=== PATIENT | male | born 1935 ===

== ENCOUNTER 2018-06-26 12:56 | Inpatient (IN) ==
[2018-06-26] MEDS ORDERED: Acetaminophen 325 MG Tablet PO ONE (13:27)
--- NOTE | 2018-06-26 13:32 | ED ---
HPI General Chief Complaint: Fall Stated Complaint: Fall/Medical Time Seen by Provider: 06/26/18 13:11 Source: patient and family Limitations: no limitations History of Present Illness HPI Narrative: 82-year-old male presents from triage with complaint last night trying to get into bed and falling and having weakness in his legs with difficulty getting up. His family called 911 but he was able to get up and did not want to go when so they did not come last night. He states that he has been having a dry cough but denies other concurrent complaints. He did not know that he had a fever. complaint: Reports fall Onset (ago): hour(s) Fall from: standing Fall witnessed: yes, by family Place fall occurred: home Loss of consciousness: none Symptoms prior to fall: Reports none Associated symptoms (after fall): Reports weakness Related Data Home Medications Medication Instructions Recorded Confirmed aspirin [Aspir-81] 81 mg PO DAILY 06/26/18 06/26/18 atorvastatin 40 mg PO DAILY 06/26/18 06/26/18 gabapentin 100 mg PO DAILY 06/26/18 06/26/18 glipizide 10 mg PO BID 06/26/18 06/26/18 pioglitazone 30 mg PO DAILY 06/26/18 06/26/18 verapamil 240 mg PO DAILY 06/26/18 06/26/18 Allergies Allergy/AdvReac Type Severity Reaction Status Date / Time No Known Allergies Allergy Verified 06/26/18 13:24 Review of Systems ROS: all other systems reviewed are negative [facility] Medical History Medical History Diabetes (Acute) HTN (hypertension) (Acute) Social History Social History Second Hand Smoke Exposure: No Smoking Status: Never smoker How Often Do You Have a Drink Containing Alcohol: Monthly or less Recent Travel in [facility] within the Last 8 Weeks: No Recent Out of Country Travel within the Last 8 Weeks: No Immunization History Tetanus Immunization: <5 Years Exam Narrative Exam Narrative: GENERAL: 82 y/o male in no apparent distress SKIN: Focused skin assessment warm/dry. HEAD: Atraumatic. Normocephalic. EYES: Pupils equal and round. No scleral icterus. No injection or drainage. ENT: No nasal bleeding or discharge. Mucous membranes pink and moist. NECK: Trachea midline. CARDIOVASCULAR: Regular rate and rhythm. RESPIRATORY: No accessory muscle use. Clear to auscultation. Breath sounds equal bilaterally. GASTROINTESTINAL: Abdomen soft, non-tender, nondistended MUSCULOSKELETAL: No obvious deformities. No clubbing. No cyanosis. No edema. NEUROLOGICAL: Awake and alert. No obvious cranial nerve deficits. Motor grossly within normal limits. Normal speech. 5/5 in all 4 extremities PSYCHIATRIC: Appropriate mood and affect; insight and judgment normal. Course Reevaluation(s) Reevaluation #1: Patient's blood work shows renal failure of unknown chronicity given no prior blood work. He states he follows with Dr. Gee in the past but does not know what his baseline is. He has lactic acidosis and rhabdomyolysis. He was given IV fluids and broad-spectrum antibiotic. No definitive source of infection noted. Influenza added on and will be admitted for further care Consultations Consultation #1: dr porter agrees to admit Initial Documented Vital Signs Temperature 100.2 F H 06/26/18 13:05 Pulse Rate 97 H 06/26/18 13:05 Respiratory Rate 20 06/26/18 13:05 Blood Pressure 155/70 H 06/26/18 13:05 Pulse Oximetry 97 06/26/18 13:05 Last Documented Vital Signs Temperature 100.2 F H 06/26/18 13:05 Pulse Rate 80 06/26/18 17:36 Respiratory Rate 16 06/26/18 17:36 Blood Pressure 154/72 H 06/26/18 17:36 Pulse Oximetry 95 06/26/18 17:36 Medical Decision Making MDM Narrative Medical decision making narrative: We will check workup and reevaluate. Medical Screen Exam Complete: Yes Emergency Medical Condition: Yes Differential Diagnosis Differential Diagnosis: Rhabdomyolysis, UTI, pneumonia, URI, anemia, renal failure, hyponatremia Lab Data Lab results reviewed: Yes I reviewed the patient's lab results. Result diagrams: 06/26/18 13:45 06/26/18 13:45 Lab Results 06/26/18 06/26/18 06/26/18 Range/Units 13:45 13:45 13:45 WBC 6.0 (4.0-11.0) th/mm3 RBC 4.06 L (4.50-5.90) mil/mm3 Hgb 13.3 (13.0-17.0) gm/dL Hct 38.3 L (39.0-51.0) % MCV 94.3 (80.0-100.0) fL MCH 32.7 (27.0-34.0) pg MCHC 34.6 (32.0-36.0) % RDW 13.7 (11.6-17.2) % Plt Count 93 L (150-450) th/mm3 MPV 8.5 (7.0-11.0) fL Prelim Diff (Auto) Slide review pending Neut % (Auto) 81.0 H (16.0-70.0) % Lymph % (Auto) 8.5 L (9.0-44.0) % Carter % (Auto) 10.2 H (0.0-8.0) % Eos % (Auto) 0.1 (0.0-4.0) % Baso % (Auto) 0.2 (0.0-2.0) % Neut # (Auto) 4.9 (1.8-7.7) th/mm3 Lymph # (Auto) 0.5 L (1.0-4.8) th/mm3 Carter # (Auto) 0.6 (0.0-0.9) th/mm3 Eos # (Auto) 0.0 (0.0-0.4) th/mm3 Baso # (Auto) 0.0 (0.0-0.2) th/mm3 WBC Differential . Diff Scan Auto diff confirmed Differential Comment . PT 10.0 (9.8-11.6) sec INR 1.0 Ratio APTT 28.8 (23.4-31.7) sec Sodium 136 (136-145) meq/L Potassium 4.1 (3.5-5.1) meq/L Chloride 101 (98-107) meq/L Carbon Dioxide 26.0 (21.0-32.0) meq/L Anion Gap 9 (5-15) meq/L BUN 30 H (7-18) mg/dL Creatinine 2.73 H (0.60-1.30) mg/dL Estimated GFR 23 L (>89) mL/min Random Glucose 114 H (74-106) mg/dL Lactic Acid (0.4-2.0) mmol/L Calcium 8.3 L (8.5-10.1) mg/dL Phosphorus 3.4 (2.5-4.9) mg/dL Magnesium 2.2 (1.5-2.5) mg/dL Total Bilirubin 0.8 (0.2-1.0) mg/dL AST 53 H (15-37) U/L ALT 29 (12-78) U/L Alkaline Phosphatase 80 (45-117) U/L Total Creatine Kinase 1072 H (39-308) U/L CK-MB (CK-2) 2.8 (0.5-3.6) ng/mL CK-MB (CK-2) % 0.3 (0.0-4.0) % Troponin I 0.03 (0.02-0.05) ng/mL Total Protein 7.0 (6.4-8.2) g/dL Albumin 3.4 (3.4-5.0) g/dL Urine Color (Yellw/Straw) Urine Clarity (Clear) Urine pH (5.0-8.5) Ur Specific [place] (1.002-1.035) Urine Protein (Neg-Trace) mg/dL Urine Glucose (UA) (Negative) mg/dL Urine Ketones (Negative) mg/dL Urine Occult Blood (Negative) Urine Nitrate (Negative) Urine Bilirubin (Negative) Urine Urobilinogen (Less than 2) mg/dL Ur Leukocyte Esterase (Negative) Urine RBC (0-3) /hpf Urine WBC (0-5) /hpf Ur Squamous Epith Cells (0-5) /hpf Urine Mucus (Occasional) /lpf Micro UA Comment Ur Microscopic Review Urine Culture Comments 06/26/18 06/26/18 Range/Units 13:45 14:50 WBC (4.0-11.0) th/mm3 RBC (4.50-5.90) mil/mm3 Hgb (13.0-17.0) gm/dL Hct (39.0-51.0) % MCV (80.0-100.0) fL MCH (27.0-34.0) pg MCHC (32.0-36.0) % RDW (11.6-17.2) % Plt Count (150-450) th/mm3 MPV (7.0-11.0) fL Prelim Diff (Auto) Neut % (Auto) (16.0-70.0) % Lymph % (Auto) (9.0-44.0) % Carter % (Auto) (0.0-8.0) % Eos % (Auto) (0.0-4.0) % Baso % (Auto) (0.0-2.0) % Neut # (Auto) (1.8-7.7) th/mm3 Lymph # (Auto) (1.0-4.8) th/mm3 Carter # (Auto) (0.0-0.9) th/mm3 Eos # (Auto) (0.0-0.4) th/mm3 Baso # (Auto) (0.0-0.2) th/mm3 WBC Differential Diff Scan Differential Comment PT (9.8-11.6) sec INR Ratio APTT (23.4-31.7) sec Sodium (136-145) meq/L Potassium (3.5-5.1) meq/L Chloride (98-107) meq/L Carbon Dioxide (21.0-32.0) meq/L Anion Gap (5-15) meq/L BUN (7-18) mg/dL Creatinine (0.60-1.30) mg/dL Estimated GFR (>89) mL/min Random Glucose (74-106) mg/dL Lactic Acid 2.3 H (0.4-2.0) mmol/L Calcium (8.5-10.1) mg/dL Phosphorus (2.5-4.9) mg/dL Magnesium (1.5-2.5) mg/dL Total Bilirubin (0.2-1.0) mg/dL AST (15-37) U/L ALT (12-78) U/L Alkaline Phosphatase (45-117) U/L Total Creatine Kinase (39-308) U/L CK-MB (CK-2) (0.5-3.6) ng/mL CK-MB (CK-2) % (0.0-4.0) % Troponin I (0.02-0.05) ng/mL Total Protein (6.4-8.2) g/dL Albumin (3.4-5.0) g/dL Urine Color Yellow (Yellw/Straw) Urine Clarity Hazy H (Clear) Urine pH 5.0 (5.0-8.5) Ur Specific [place] 1.014 (1.002-1.035) Urine Protein 500 or greater (Neg-Trace) mg/dL Urine Glucose (UA) Negative (Negative) mg/dL Urine Ketones Negative (Negative) mg/dL Urine Occult Blood Small H (Negative) Urine Nitrate Negative (Negative) Urine Bilirubin Negative (Negative) Urine Urobilinogen Less than 2 (Less than 2) mg/dL Ur Leukocyte Esterase Negative (Negative) Urine RBC Less than 1 (0-3) /hpf Urine WBC 3 (0-5) /hpf Ur Squamous Epith Cells <1 (0-5) /hpf Urine Mucus Few H (Occasional) /lpf Micro UA Comment Culture not ind Ur Microscopic Review Not Reportable Urine Culture Comments Culture not ind Imaging Data Attestation: I personally reviewed and interpreted this imaging study as follows : Radiologist's impression: Chest X-Ray 06/26/18 13:27 CONCLUSION: No acute cardiopulmonary disease. Head CT 06/26/18 13:27 CONCLUSION: Slight chronic small vessel ischemic and atrophic changes. Abdomen/Pelvis CT 06/26/18 15:35 CONCLUSION: 1. Cholelithiasis. No pericholecystic inflammatory changes seen. 2. Colonic diverticula. No evidence of acute diverticulitis. 3. Enlarged prostate. 4. Lumbar spine degenerative findings. Discharge Plan Discharge Disposition Patient Disposition: ED Admit(ED Internal Use Only) Discharge Order Discharge Orders: ED Use Only Admit Order (Routine); Ordered 06/26/18 Ordered By: Alejandrina De Jesus Discharge Details Diagnosis: Rhabdomyolysis, Acidosis, lactic, Renal failure Physicians Team ED Provider: Alejandrina De Jesus Primary Care Provider: UNKNOWN, Attending Provider: Cassia Porter Discharge Interventions Interventions: Vital Signs Last Done: 06/26/18 17:36 Status ED Status: Admitted Patient
--- NOTE | 2018-06-26 13:53 | XR ---
EXAM DATE: 06/26/2018 1:47 PM EST AGE/SEX: 82 years / Male INDICATIONS: Chest pain and general weakness. CLINICAL DATA: This is the patient's initial encounter. Patient reports that signs and symptoms have been present for 1 week and indicates a pain score of 2/10. MEDICAL/SURGICAL HISTORY: None. None. COMPARISON: . FINDINGS: The lungs are clear without infiltrate, nodule, or mass. There is no appreciable pleural effusion for technique. Heart and mediastinum are unremarkable. CONCLUSION: No acute cardiopulmonary disease. Electronically signed by: Meghna Uribe MD Board Certified Radiologist 06/26/2018 1:51 PM EST
[2018-06-26 14:21] LABS: Baso % (Auto) 0.2 % (0.0-2.0); Eos % (Auto) 0.1 % (0.0-4.0); Hematocrit 38.3 % (39.0-51.0); Hemoglobin 13.3 gm/dL (13.0-17.0); Lymph # (Auto) 0.5 th/mm3 (1.0-4.8); Lymph % (Auto) 8.5 % (9.0-44.0); Mean Corpuscular HGB Conc 34.6 % (32.0-36.0); Mean Corpuscular Hemoglobin 32.7 pg (27.0-34.0); Mean Corpuscular Volume 94.3 fL (80.0-100.0); Mean Platelet Volume 8.5 fL (7.0-11.0); Mono # (Auto) 0.6 th/mm3 (0.0-0.9); Mono % (Auto) 10.2 % (0.0-8.0); Neut # (Auto) 4.9 th/mm3 (1.8-7.7); Platelet Count 93 th/mm3 (150-450); Red Blood Count 4.06 mil/mm3 (4.50-5.90); Red Cell Distribution Width 13.7 % (11.6-17.2)
[2018-06-26 14:27] LABS: Activated Partial Thrombo Time 28.8 sec (23.4-31.7)
--- NOTE | 2018-06-26 14:34 | CT ---
EXAM DATE: 06/26/2018 2:30 PM EST AGE/SEX: 82 years / Male INDICATIONS: Patient complains of weakness. CLINICAL DATA: This is the patient's initial encounter. Patient reports that signs and symptoms have been present for 1 day and indicates a pain score of 1/10. MEDICAL/SURGICAL HISTORY: Diabetes. Hypertension. Non-responsive. RADIATION DOSE: 56.35 CTDI (mGy) COMPARISON: No prior exams available for comparison. TECHNIQUE: CT of the head without contrast. Using automated exposure control and adjustment of the mA and/or kV according to patient size, radiation dose was kept as low as reasonably achievable to ob tain optimal diagnostic quality images. DICOM format image data is available electronically for revi ew and comparison. FINDINGS: There is no evidence for intracranial hemorrhage, mass effect, mass lesions, or edema. The visualize d bony structures appear intact. Slight degree of brain atrophy is seen. Slight periventricular whit e matter changes are seen nonspecific mostly consistent with chronic small vessel ischemic changes. There are no signs of acute infarction for technique. CONCLUSION: Slight chronic small vessel ischemic and atrophic changes. Electronically signed by: Meghna Uribe MD Board Certified Radiologist 06/26/2018 2:32 PM EST
[2018-06-26 14:35] LABS: Alanine Aminotransferase 29 U/L (12-78); Albumin 3.4 g/dL (3.4-5.0); Anion Gap 9 meq/L (5-15); Aspartate Aminotransferase 53 U/L (15-37); Blood Urea Nitrogen 30 mg/dL (7-18); Calcium 8.3 mg/dL (8.5-10.1); Chloride 101 meq/L (98-107); Glomerular Filtration Rate 23 mL/min (>89); Glucose,Random 114 mg/dL (74-106); Magnesium 2.2 mg/dL (1.5-2.5); Phosphorus 3.4 mg/dL (2.5-4.9); Potassium 4.1 meq/L (3.5-5.1); Sodium 136 meq/L (136-145)
[2018-06-26] MEDS ORDERED: Sod Chloride 0.9% Inj 1,000 ML IV.SIG SCH ×2 (14:45→15:00)
[2018-06-26 14:49] LABS: Alkaline Phosphatase 80 U/L (45-117); Creatine Kinase 1072 U/L (39-308); Troponin I 0.03 ng/mL (0.02-0.05)
[2018-06-26] MEDS ORDERED: Piperacil/Tazo 4.5 GM Premix 4.5 GM/100 ML BAG IV.SIG SCH (15:00)
[2018-06-26 15:01] LABS: CKMB Percent 0.3 % (0.0-4.0); Creatine Kinase MB 2.8 ng/mL (0.5-3.6)
[2018-06-26 15:25] LABS: Bilirubin,Urine Negative (Negative); Clarity,Urine Hazy (Clear); Color,Urine Yellow (Yellw/Straw); Glucose,Urine (UA) Negative (Negative); Leukocyte Esterase,Urine Negative (Negative); Mucus,Urine Few /lpf (Occasional); Nitrite,Urine Negative (Negative); Specific Gravity,Urine 1.014 (1.002-1.035); Squamous Epithelial Cell,Urine <1 /hpf (0-5)
--- NOTE | 2018-06-26 17:45 | CT ---
EXAM DATE: 06/26/2018 5:30 PM EST AGE/SEX: 82 years / Male INDICATIONS: Abdominal pain. CLINICAL DATA: This is the patient's initial encounter. Patient reports that signs and symptoms have been present for 1 day and indicates a pain score of 4/10. MEDICAL/SURGICAL HISTORY: Hypertension. None. RADIATION DOSE: 13.47 CTDI (mGy) COMPARISON: No prior exams available for comparison. TECHNIQUE: Multiple contiguous axial images were obtained through the abdomen. Images were obtained using multiple row detector helical technique. Using automated exposure control and adjustment of the mA and/or kV according to patient size, radiation dose was kept as low as reasonably achievable to o btain optimal diagnostic quality images. DICOM format image data is available electronically for rev iew and comparison. FINDINGS: Lower Lungs: The visualized lower lungs are clear. Liver: Multiple small calcified gallstones are seen at the dependent portion of the gallbladder. No p ericholecystic inflammatory changes. Liver is homogeneous and within normal limits. No biliary ductal dilatation identified. Spleen: Homogeneous density without enlargement. Pancreas: Unremarkable without mass or calcification. Kidneys: Normal in size and shape. No evidence of mass or hydronephrosis. Adrenal Glands: Unremarkable. Aorta: The aorta and proximal iliac vessels are grossly unremarkable without aneurysmal dilation. Bowel/Mesentery: Multiple colonic diverticula. No evidence of acute diverticulitis. No evidence of b owel dilatation. No free air or free fluid. Appendix within normal limits. Abdominal Wall: Intact. Retroperitoneum: No evidence of adenopathy in the retrocrural, para-aortic, or deep pelvic regions. Bladder: Contours are smooth. Reproductive Organs: The prostate is enlarged measuring 5.1 cm in greatest transverse dimension. Inguinal: Within normal limits. 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 Bridging osteophytes across the sacroili ac joints. CONCLUSION: 1. Cholelithiasis. No pericholecystic inflammatory changes seen. 2. Colonic diverticula. No evidence of acute diverticulitis. 3. Enlarged prostate. 4. Lumbar spine degenerative findings. Electronically signed by: Kemar Gallegos MD Board Certified Radiologist 06/26/2018 5:43 PM EST
[2018-06-26] MEDS ORDERED: Acetaminophen 325 MG Tablet PO PRN (17:49)
[2018-06-26] MEDS ORDERED: Bisacodyl 10 MG Supp RECTAL PRN (17:49)
[2018-06-26] MEDS ORDERED: Dextrose 50% in Water 50 ML Vial IV.PUSH PRN (17:52)
--- NOTE | 2018-06-26 18:29 | P.HPIM ---
History of Present Illness Primary Care Physician: UNKNOWN History of Present Illness: 82-year-old white male with a history of hypertension, diabetes mellitus type 2, chronic kidney disease stage IV presents to the emergency room after he felt extremely weak this morning and fell while he was attempting to get out of bed. Of note, patient reports a 6- day history of dry cough with no associated shortness of breath or chest pain. He reports some mild muscle aches and weakness in the hip over the past few days. He has had also a poor appetite due to not feeling well. He denies any associated abdominal pain nor any nausea vomiting or chills or diarrhea. He reports no fever but may be some occasional chills. He usually ambulates independently with no difficulty. He also reports that his blueprint reader is Dr. Gotti and states his last GFR was 28. He does not recall his creatinine level. He reports he is making good urine with no difficulty and denies any symptoms of dysuria. Diagnosis (1) Severe sepsis: (2) RAFAELA (acute kidney injury): Inpatient Certification Inpatient Certification: I certify that the inpatient services were ordered in accordance with Medicare regulations governing the order. This includes certification that hospital inpatient services are reasonable and necessary and in the case of services not specified as inpatient-only under 42 CFR 419.22(n), that they are appropriately provided as inpatient services in accordance to with the 2-midnight benchmark under 43 CFR 412.3(e) Estimated Total Length of Stay (Days): 3 Plans for Post Hospital Care: Not yet determined Review of Systems Constitutional: Reports as per HPI, Reports body ache(s), Reports chills, Denies fever(s), Denies headache(s) and Reports poor appetite Eyes: Denies blurry vision, Denies change in vision and Denies eye pain Ears, Nose, Mouth, and Throat: Denies abnormal hearing, Denies headache(s), Denies mouth pain, Denies nasal congestion, Denies neck pain and Denies sore throat Cardiovascular: Denies chest pain, Denies pedal edema, Denies palpitations and Denies dyspnea Respiratory: Denies change in phlegm color, Denies chest congestion, Reports cough, Denies dyspnea and Denies wheezing Gastrointestinal: Denies abdominal pain, Denies constipation, Denies loose stools, Denies nausea and Denies vomiting Musculoskeletal: Denies back pain, Denies myalgias, Denies arthralgias, Denies neck pain and Denies numbness Skin/Breast: Denies new lesions and Denies rash Neurologic: Denies abnormal hearing, Denies headache(s), Denies focal weakness, Denies memory loss and Denies numbness Psychiatric: Denies anxiety, Denies depression and Denies memory loss Endocrine: Denies cold intolerance, Denies heat intolerance and Denies palpitations Hematologic/Lymphatic: Denies easy bleeding and Denies easy bruising FOR[facility]LY [facility] Medical History Medical History CKD (chronic kidney disease) stage 4, GFR 15-29 ml/min (Chronic) Diabetes (Chronic) HTN (hypertension) (Chronic) Surgical History Surgical History No history of previous surgery (Chronic) Social History Social History Second Hand Smoke Exposure: No Smoking Status: Never smoker How Often Do You Have a Drink Containing Alcohol: Monthly or less Recent Travel in [facility] within the Last 8 Weeks: No Recent Out of Country Travel within the Last 8 Weeks: No Immunization History Tetanus Immunization: <5 Years Medications and Allergies Allergies Allergy/AdvReac Type Severity Reaction Status Date / Time No Known Allergies Allergy Verified 06/26/18 13:24 Home Medications Medication Instructions Recorded Confirmed Type aspirin [Aspir-81] 81 mg PO DAILY 06/26/18 06/26/18 History atorvastatin 40 mg PO DAILY 06/26/18 06/26/18 History gabapentin 100 mg PO DAILY 06/26/18 06/26/18 History glipizide 10 mg PO BID 06/26/18 06/26/18 History pioglitazone 30 mg PO DAILY 06/26/18 06/26/18 History verapamil 240 mg PO DAILY 06/26/18 06/26/18 History Active Medications: Active Medications Acetaminophen (Tylenol) 650 mg PO Q4H PRN PRN Reason: Temp > 100.4 Al Hydroxide/Mg Hydroxide (Milk Of Magnesia Liq) 30 ml PO Q12H PRN PRN Reason: Mild Constipation Bisacodyl (Dulcolax Supp) 10 mg RECTAL DAILY PRN PRN Reason: SEVERE CONSITIPATION Dextrose (D50w Vial) 50 ml IV.PUSH UNSCH PRN PRN Reason: PER HYPOGLYCEMIA PROTOCOL Glucagon (Glucagon Inj) 1 mg OTHER PRN PRN PRN Reason: for Hypoglycemia Protocol Heparin Sodium (Porcine) (Heparin Inj) 5,000 units SQ Q12H LORAINE Piperacillin/Tazobactam/Dextrose (Zosyn 4.5 Gm Premix) 4.5 gm in 100 mls @ 200 mls/hr IV.SIG ONCE LORAINE Last Infusion: 06/26/18 16:25 Dose: Infused Sodium Chloride (Ns Inj) 1,000 mls @ 100 mls/hr IV.CONT .Q10H LORAINE Insulin Aspart (Novolog Insulin Correctional Sugar Inj) 0 unit SQ ACHS LORAINE; Protocol Lactulose (Lactulose Liq) 30 ml PO DAILY PRN PRN Reason: SEVERE CONSITIPATION Ondansetron HCl (Zofran Inj) 4 mg IV.PUSH Q6H PRN PRN Reason: NAUSEA OR VOMITING Sennosides (Senokot) 17.2 mg PO Q12H PRN PRN Reason: Moderate Constipation Sodium Chloride (Ns Flush) 2 ml IV.FLUSH BID LORAINE Sodium Chloride (Ns Flush) 2 ml IV.FLUSH PRN PRN PRN Reason: FLUSH AFTER USING IV ACCESS Physical Exam Vital signs: Last Vital Signs Temp 100.2 F H 06/26/18 13:05 Pulse 80 06/26/18 17:36 Resp 16 06/26/18 17:36 BP 154/72 H 06/26/18 17:36 Pulse Ox 95 06/26/18 17:36 Intake & Output 06/24/18 06/25/18 06/26/18 06/27/18 06:59 06:59 06:59 06:59 Intake Total 2099 Balance 2099 Weight 80.739 kg Narrative: GENERAL: Well-nourished well-developed pleasant male in no acute distress SKIN: Warm and dry. HEAD: Atraumatic. Normocephalic. EYES: Pupils equal and round. No scleral icterus. No injection or drainage. ENT: No nasal bleeding or discharge. Mucous membranes pink and moist. Oropharynx no erythema or exudates NECK: Trachea midline. No JVD. CARDIOVASCULAR: Regular rate and rhythm. RESPIRATORY: No accessory muscle use. Relatively clear to auscultation. Breath sounds equal bilaterally. GASTROINTESTINAL: Abdomen soft, non-tender, nondistended. Normoactive bowel sounds MUSCULOSKELETAL: Extremities without clubbing, cyanosis, or edema. No obvious deformities. NEUROLOGICAL: Awake and alert to person place time situation. No obvious cranial nerve deficits. Motor grossly within normal limits. Five out of 5 muscle strength in the arms and legs. Normal speech. Was able to stand up with assistance. PSYCHIATRIC: Appropriate mood and affect; insight and judgment normal. Results Labs CBC & Chem 7: 06/26/18 13:45 06/26/18 13:45 Imaging Impressions Chest X-Ray 06/26/18 13:27 CONCLUSION: No acute cardiopulmonary disease. Head CT 06/26/18 13:27 CONCLUSION: Slight chronic small vessel ischemic and atrophic changes. Abdomen/Pelvis CT 06/26/18 15:35 CONCLUSION: 1. Cholelithiasis. No pericholecystic inflammatory changes seen. 2. Colonic diverticula. No evidence of acute diverticulitis. 3. Enlarged prostate. 4. Lumbar spine degenerative findings. Caprini VTE Risk Assessment Caprini VTE Risk Assessment: Moderate/High Risk (score >= 2) Caprini Risk Assessment Model: Point Value = 1 Point Value = 2 Point Value = 3 Point Value = 5 Age 41-60 Minor surgery BMI > 25 kg/m2 Swollen legs Varicose veins or History of unexplained or recurrent spontaneous Oral contraceptives or hormone replacement Sepsis (< 1 month) Serious lung disease, including pneumonia (< 1 month) Abnormal pulmonary function Acute myocardial infarction Congestive heart failure (< 1 month) History of inflammatory bowel disease Medical patient at bed rest Age 61-74 Arthroscopic surgery Major open surgery (> 45 min) Laparoscopic surgery (> 45 min) Malignancy Confined to bed (> 72 hours) Immobilizing plaster cast Central venous access Age >= 75 History of VTE Family history of VTE Factor V Leiden Prothrombin [id number] Lupus anticoagulant Anticardiolipin antibodies Elevated serum homocysteine Heparin-induced thrombocytopenia Other congenital or acquired thrombophilia Stroke (< 1 month) Elective arthroplasty Hip, pelvis, or leg fracture Acute spinal cord injury (< 1 month) Prophylaxis Regimen: Total Risk Factor Score Risk Level Prophylaxis Regimen 0-1 Low Early ambulation 2 Moderate Order ONE of the following: *Sequential Compression Device (SCD) *Heparin 5000 units SQ BID 3-4 Higher Order ONE of the following medications: *Heparin 5000 units SQ TID *Enoxaparin/Lovenox 40 mg SQ daily (WT < 150 kg, CrCl > 30 mL/min) *Enoxaparin/Lovenox 30 mg SQ daily (WT < 150 kg, CrCl > 10-29 mL/min) *Enoxaparin/Lovenox 30 mg SQ BID (WT < 150 kg, CrCl > 30 mL/min) AND/OR *Sequential Compression Device (SCD) 5 or more Highest Order ONE of the following medications: *Heparin 5000 units SQ TID (Preferred with Epidurals) *Enoxaparin/Lovenox 40 mg SQ daily (WT < 150 kg, CrCl > 30 mL/min) *Enoxaparin/Lovenox 30 mg SQ daily (WT < 150 kg, CrCl > 10-29 mL/min) *Enoxaparin/Lovenox 30 mg SQ BID (WT < 150 kg, CrCl > 30 mL/min) AND *Sequential Compression Device (SCD) Assessment and Plan (1) Severe sepsis: Code(s): A41.9 - Sepsis, unspecified organism; R65.20 - Severe sepsis without septic shock Status: Acute (2) RAFAELA (acute kidney injury): Code(s): N17.9 - Acute kidney failure, unspecified Status: Acute Plan 82-year-old white male with a history of hypertension, diabetes mellitus type 2 , chronic kidney disease stage IV presented to the emergency room after he sustained a fall having lower extremity weakness with a 6-day history of cough. Presenting severe sepsis with lactic acid greater than 2.3 with acute kidney injury, heart rate greater than 90, low-grade fever source possibly upper respiratory infection, check influenza to rule out flu Follow-up with blood cultures, IV Zosyn given the emergency room, will give IV fluid hydration, supportive care. Start IV Rocephin until final blood cultures can be reviewed. Repeat lactic acid trending down. Chest x-ray showed no active pneumonia. Acute kidney injury superimposed on chronic kidney disease stage IV current GFR 23 and patient reports last EGFR is 28. This may be due to early acute tubular necrosis due to early sepsis and dehydration, IV fluid hydration and repeat BUN/creatinine the morning. Further evaluation and consultation with his blueprint reader if does not improve. Diabetes mellitus, type II, [id number] will hold his glipizide and pioglitazone as patient reports decreased oral intake during the past few days, monitor blood sugars with sliding scale insulin and consider restarting medications after assessing percentage of meals taken. Hypertension, resume verapamil Hyperlipidemia, chronicresume statin. Mild rhabdomyolysis due to fallIV fluid hydration trend CPK Cholelithiasis on CAT scan asymptomatic Diverticulosis on CAT scan asymptomaticthese findings were discussed with patient and family at bedside today. Diet counseling provided. Deconditioningphysical therapy consultation. DVT prophylaxisheparin
[2018-06-26] MEDS ORDERED: guaiFENesin/Dextromethorphan 200 MG/20 MG 10 ML UDC PO PRN (18:32)
[2018-06-26] MEDS: Heparin - SQ 10,000 UNITS/ML Vial SQ SCH (19:59)
[2018-06-26] MEDS: Sod Chloride 0.9% Inj 1,000 ML IV.CONT SCH (20:00)
[2018-06-26] MEDS: Insulin NovoLOG Aspart Correctional Sugar Inj SQ SCH (21:11)
[2018-06-27] MEDS: Heparin - SQ 10,000 UNITS/ML Vial SQ SCH ×2 (07:42→18:18)
[2018-06-27] MEDS: Sod Chloride 0.9% Inj 1,000 ML IV.CONT SCH ×2 (07:42→14:13)
[2018-06-27 08:17] LABS: Baso % (Auto) 0.2 % (0.0-2.0); Eos % (Auto) 0.6 % (0.0-4.0); Hematocrit 33.3 % (39.0-51.0); Hemoglobin 11.6 gm/dL (13.0-17.0); Lymph # (Auto) 0.8 th/mm3 (1.0-4.8); Lymph % (Auto) 22.2 % (9.0-44.0); Mean Corpuscular HGB Conc 34.8 % (32.0-36.0); Mean Corpuscular Hemoglobin 32.3 pg (27.0-34.0); Mean Corpuscular Volume 92.9 fL (80.0-100.0); Mean Platelet Volume 8.5 fL (7.0-11.0); Mono # (Auto) 0.4 th/mm3 (0.0-0.9); Mono % (Auto) 10.3 % (0.0-8.0); Neut # (Auto) 2.5 th/mm3 (1.8-7.7); Neut % (Auto) 66.7 % (16.0-70.0); Platelet Count 80 th/mm3 (150-450); Red Blood Count 3.59 mil/mm3 (4.50-5.90); Red Cell Distribution Width 13.6 % (11.6-17.2); White Blood Count 3.7 th/mm3 (4.0-11.0)
[2018-06-27 09:04] LABS: Calcium 7.7 mg/dL (8.5-10.1); Carbon Dioxide 22.7 meq/L (21.0-32.0); Potassium 3.3 meq/L (3.5-5.1)
[2018-06-27] MEDS: Insulin NovoLOG Aspart Correctional Sugar Inj SQ SCH ×3 (09:11→19:10)
[2018-06-27 09:33] LABS: CKMB Percent 0.3 % (0.0-4.0); Creatine Kinase MB 2.9 ng/mL (0.5-3.6)
[2018-06-27 09:46] LABS: Platelet Morphology Normal (Normal)
[2018-06-27] MEDS: Verapamil SR 240 MG Tablet PO SCH (10:31)
[2018-06-27] MEDS: Gabapentin 100 MG Capsule PO SCH (10:32)
--- NOTE | 2018-06-27 11:24 | P.PNIM ---
Subjective Interval history: Patient was admitted overnight for treatment of rhabdomyolysis after being found unable to get off of the floor when a carpet on the side of his bed slid him gently down to the floor. He does not report any injuries. He does report that he has been very fatigued at home over the last few months and does not have a good explanation for this. Physical Exam Vital signs: Last Vital Signs Temp 98.7 F 06/27/18 07:30 Pulse 87 06/27/18 07:30 Resp 18 06/27/18 07:30 BP 149/73 H 06/27/18 07:30 Pulse Ox 97 06/27/18 07:30 Intake & Output 06/25/18 06/26/18 06/27/18 06/28/18 06:59 06:59 06:59 06:59 Intake Total 2200 / 2200 700 / 700 Balance 2200 / 2200 700 / 700 Weight 80.739 kg Narrative: GENERAL: Well-nourished well-developed pleasant male in no acute distress SKIN: Warm and dry. HEAD: Atraumatic. Normocephalic. EYES: Pupils equal and round. No scleral icterus. No injection or drainage. ENT: No nasal bleeding or discharge. Mucous membranes pink and moist. Oropharynx no erythema or exudates NECK: Trachea midline. No JVD. CARDIOVASCULAR: Regular rate and rhythm. RESPIRATORY: No accessory muscle use. Relatively clear to auscultation. Breath sounds equal bilaterally. GASTROINTESTINAL: Abdomen soft, non-tender, nondistended. Normoactive bowel sounds MUSCULOSKELETAL: Extremities without clubbing, cyanosis, or edema. No obvious deformities. NEUROLOGICAL: Awake and alert to person place time situation. No obvious cranial nerve deficits. Motor grossly within normal limits. Five out of 5 muscle strength in the arms and legs. Normal speech. Was able to stand up with assistance. PSYCHIATRIC: Appropriate mood and affect; insight and judgment normal. Results Labs CBC & Chem 7: 06/27/18 07:15 06/27/18 07:15 Labs: Microbiology 06/26/18 13:55 Blood - Peripheral Aerobic Blood Culture - Preliminary No growth in 1 day 06/26/18 13:55 Blood - Peripheral Anaerobic Blood Culture - Preliminary No growth in 1 day 06/26/18 13:45 Blood - Peripheral Aerobic Blood Culture - Preliminary No growth in 1 day 06/26/18 13:45 Blood - Peripheral Anaerobic Blood Culture - Preliminary No growth in 1 day 06/26/18 18:16 Nasal Wash Influenza Types A,B Antigen - Final Positive for Flu A Antigen Imaging Imaging: Impressions Chest X-Ray 06/26/18 13:27 CONCLUSION: No acute cardiopulmonary disease. Head CT 06/26/18 13:27 CONCLUSION: Slight chronic small vessel ischemic and atrophic changes. Abdomen/Pelvis CT 06/26/18 15:35 CONCLUSION: 1. Cholelithiasis. No pericholecystic inflammatory changes seen. 2. Colonic diverticula. No evidence of acute diverticulitis. 3. Enlarged prostate. 4. Lumbar spine degenerative findings. Assessment and Plan (1) Severe sepsis: Code(s): A41.9 - Sepsis, unspecified organism; R65.20 - Severe sepsis without septic shock Status: Acute (2) RAFAELA (acute kidney injury): Code(s): N17.9 - Acute kidney failure, unspecified Status: Acute Plan 82-year-old white male with a history of hypertension, diabetes mellitus type 2 , chronic kidney disease stage IV presented to the emergency room after he sustained a atraumatic fall having lower extremity weakness with a 6-day history of cough. Elevated lactic acid Patient presented with rhabdomyolysis, muscle breakdown, so elevated lactic acid is expected He has had no fevers, no leukocytosis, CXR within normal limits He does have a cough so some basic empiric coverage for URI would be indicated Follow blood cultures Cough continue IV Rocephin, possible Z-Mariusz on discharge Chronic fatigue, muscle weakness Patient reports that he has had decline in his strength over the last year, uncertain why Expanding workup including addition of TSH, B12 level, testosterone level Discontinue atorvastatin, recommend taking 1 month off, this is a possible cause of muscle fatigue and rhabdomyolysis Type 2 diabetes Accu-Cheks with sliding scale insulin coverage Diabetic diet Acute on chronic renal disease Likely aggravated by rhabdomyolysis Continue with gentle IV fluid rehydration, improving thus far Follow creatinine trend Hypertension Continue verapamil Hyperlipidemia Modify diet, discontinue statin due to rhabdomyolysis and 1 year of muscle weakness Cholelithiasis Dietary change, no intervention at this time, patient is asymptomatic DVT Prophylaxis Heparin Disposition Follow CPK level for downward trend Stop statin for possible contribution to rhabdomyolysis and generalized muscle weakness If TSH and B12 levels are normal and CPK is downward trending patient may be discharged Progress Note: Quality VTE Deep Vein Thrombosis/Pulmonary Embolism Present on Admission: No
[2018-06-27 13:33] LABS: Thyroid Stimulating Hormone 1.8 uIU/mL (0.358-3.740)
--- NOTE | 2018-06-27 17:27 | ECHRPT ---
Indication: SHORTNESS OF BREATH CONCLUSIONS Very technically difficult study. The left ventricular systolic function is low normal with an estimated ejection fraction in the rang e of 50- 55%. Wall thickness is measured at the upper limits of normal. There was limited left ventricular wall motion assessment due to poor endocardial visualization. There is trace tricuspid valve regurgitation. BP: / HR: Rhythm: Sinus Technical Quality:Very technically difficult study FINDINGS LEFT VENTRICLE Normal left ventricular size. Wall thickness is measured at the upper limits of normal. The left ventricular systolic function is low normal with an estimated ejection fraction in the rang e of 50- 55%. There was limited left ventricular wall motion assessment due to poor endocardial visualization. RIGHT VENTRICLE Grossly normal LEFT ATRIUM The left atrial size is normal. RIGHT ATRIUM The right atrial size is normal. ATRIAL SEPTUM The interatrial septum not well visualized. AORTA The aortic root and proximal ascending aorta are normal in size on limited imaging. MITRAL VALVE Structurally normal mitral valve. No mitral valve stenosis or regurgitation. AORTIC VALVE Trileaflet aortic valve. No aortic valve stenosis or regurgitation. Aortic valve sclerosis is present. TRICUSPID VALVE Structurally normal tricuspid valve. There is trace tricuspid valve regurgitation. No tricuspid valve stenosis. The estimated pulmonary arterial pressure is 13 mmHg. PULMONARY VALVE The pulmonary valve is not well visualized. VESSELS The inferior vena cava was not well visualized. PERICARDIUM No pericardial effusion. Prabhakar May DO (Electronically Signed) Final Date:27 June 2018 17:26
--- NOTE | 2018-06-27 21:22 | ECG ---
Date Performed: 06/26/2018 Time Performed: 15:22:26 PTAGE: 82 years EKG: Sinus rhythm NORMAL ECG NO PREVIOUS TRACING DOCTOR: Brian Tan Interpretating Date/Time 06/27/2018 21:19:19
[2018-06-28] MEDS: Insulin NovoLOG Aspart Correctional Sugar Inj SQ SCH ×5 (00:10→22:35)
[2018-06-28] MEDS: Sod Chloride 0.9% Inj 1,000 ML IV.CONT SCH ×3 (00:13→21:38)
[2018-06-28] MEDS: Heparin - SQ 10,000 UNITS/ML Vial SQ SCH ×2 (05:33→17:34)
[2018-06-28 09:13] LABS: Calcium 8.1 mg/dL (8.5-10.1); Carbon Dioxide 22.4 meq/L (21.0-32.0)
[2018-06-28 09:16] LABS: Potassium 2.7 meq/L (3.5-5.1)
[2018-06-28 09:34] LABS: CKMB Percent 0.6 % (0.0-4.0); Creatine Kinase MB 3.9 ng/mL (0.5-3.6)
[2018-06-28] MEDS: Verapamil SR 240 MG Tablet PO SCH (10:34)
[2018-06-28] MEDS: Gabapentin 100 MG Capsule PO SCH (10:34)
--- NOTE | 2018-06-28 11:07 | P.PNIM ---
Subjective Interval history: The patient was resting comfortably in bed. His family was at the bedside. The patient said that his blood sugar dropped yesterday after receiving insulin. He has not been eating much. He had no other acute complaints. Discussed with nursing. Physical Exam Vital signs: Last Vital Signs Temp 98.1 F 06/27/18 16:04 Pulse 57 L 06/28/18 08:00 Resp 18 06/28/18 08:00 BP 146/64 H 06/28/18 08:00 Pulse Ox 99 06/28/18 08:00 Intake & Output 06/26/18 06/27/18 06/28/18 06/29/18 06:59 06:59 06:59 06:59 Intake Total 2200 / 2200 3550 / 3550 1000 / 1000 Balance 2200 / 2200 3550 / 3550 1000 / 1000 Weight 80.739 kg Narrative: GENERAL: Well-nourished well-developed pleasant male in no acute distress. SKIN: Warm and dry. HEAD: Atraumatic. Normocephalic. EYES: Pupils equal and round. No scleral icterus. No injection or drainage. ENT: No nasal bleeding or discharge. Mucous membranes pink and moist. Oropharynx no erythema or exudates. NECK: Trachea midline. No JVD. CARDIOVASCULAR: Regular rate and rhythm. RESPIRATORY: No accessory muscle use. Relatively clear to auscultation. Breath sounds equal bilaterally. GASTROINTESTINAL: Abdomen soft, non-tender, nondistended. Normoactive bowel sounds MUSCULOSKELETAL: Extremities without clubbing, cyanosis, or edema. No obvious deformities. NEUROLOGICAL: Awake and alert to person place time situation. No obvious cranial nerve deficits. Motor grossly within normal limits. Five out of 5 muscle strength in the arms and legs. Normal speech. PSYCHIATRIC: Appropriate mood and affect; insight and judgment normal. Results Labs CBC & Chem 7: 06/27/18 07:15 06/28/18 06:05 Labs: Microbiology 06/26/18 13:55 Blood - Peripheral Aerobic Blood Culture - Preliminary No growth in 2 days 06/26/18 13:55 Blood - Peripheral Anaerobic Blood Culture - Preliminary No growth in 2 days 06/26/18 13:45 Blood - Peripheral Aerobic Blood Culture - Preliminary No growth in 2 days 06/26/18 13:45 Blood - Peripheral Anaerobic Blood Culture - Preliminary No growth in 2 days Assessment and Plan (1) Severe sepsis: Code(s): A41.9 - Sepsis, unspecified organism; R65.20 - Severe sepsis without septic shock Status: Acute (2) RAFAELA (acute kidney injury): Code(s): N17.9 - Acute kidney failure, unspecified Status: Acute Plan 82-year-old male with a history of hypertension, diabetes mellitus type 2, chronic kidney disease stage IV presented to the emergency room after he sustained a atraumatic fall having lower extremity weakness with a 6-day history of cough. Elevated lactic acid Patient presented with rhabdomyolysis, muscle breakdown, so elevated lactic acid is expected He has had no fevers, no leukocytosis, CXR within normal limits -s/t influenza. Influenza Positive for Flu. -start Tamiflu 06/28, renally dosed. Chronic fatigue, muscle weakness Patient reports that he has had decline in his strength over the last year, uncertain why Expanding workup including addition of TSH, B12 level, testosterone level Discontinue atorvastatin, recommend taking 1 month off, this is a possible cause of muscle fatigue and rhabdomyolysis. Type 2 diabetes -Accu-Cheks with sliding scale insulin coverage. Acute on chronic renal disease Likely aggravated by rhabdomyolysis Continue with gentle IV fluid rehydration, improving thus far -Follow BMP and avoid nephrotoxins. Hypertension -Continue verapamil. Hypokalemia Potassium has been low. -replete PO and monitor. Hyperlipidemia Modify diet, discontinue statin due to rhabdomyolysis and 1 year of muscle weakness DVT Prophylaxis Heparin Discharge Planning: Home with [facility] in 1-2 days Progress Note: Quality VTE Deep Vein Thrombosis/Pulmonary Embolism Present on Admission: No
[2018-06-28] MEDS: Oseltamivir Phosphate 30 MG Capsule PO SCH (15:47)
[2018-06-28 19:36] LABS: Calcium 8.1 mg/dL (8.5-10.1); Potassium 4.3 meq/L (3.5-5.1)
[2018-06-29 05:11] LABS: Baso % (Auto) 0.3 % (0.0-2.0); Eos # (Auto) 0.1 th/mm3 (0.0-0.4); Eos % (Auto) 1.9 % (0.0-4.0); Hematocrit 32.8 % (39.0-51.0); Hemoglobin 11.5 gm/dL (13.0-17.0); Lymph # (Auto) 0.8 th/mm3 (1.0-4.8); Lymph % (Auto) 21.4 % (9.0-44.0); Mean Corpuscular HGB Conc 35.1 % (32.0-36.0); Mean Corpuscular Hemoglobin 32.4 pg (27.0-34.0); Mean Corpuscular Volume 92.1 fL (80.0-100.0); Mean Platelet Volume 8.9 fL (7.0-11.0); Mono # (Auto) 0.3 th/mm3 (0.0-0.9); Mono % (Auto) 8.3 % (0.0-8.0); Neut # (Auto) 2.4 th/mm3 (1.8-7.7); Neut % (Auto) 68.1 % (16.0-70.0); Platelet Count 85 th/mm3 (150-450); Red Blood Count 3.57 mil/mm3 (4.50-5.90); Red Cell Distribution Width 13.4 % (11.6-17.2); White Blood Count 3.6 th/mm3 (4.0-11.0)
[2018-06-29 05:44] LABS: Calcium 8.2 mg/dL (8.5-10.1); Carbon Dioxide 22.5 meq/L (21.0-32.0); Potassium 4.5 meq/L (3.5-5.1)
[2018-06-29] MEDS: Heparin - SQ 10,000 UNITS/ML Vial SQ SCH (05:49)
[2018-06-29] MEDS: Sod Chloride 0.9% Inj 1,000 ML IV.CONT SCH (05:50)
[2018-06-29] MEDS: Insulin NovoLOG Aspart Correctional Sugar Inj SQ SCH ×2 (08:20→12:14)
[2018-06-29 08:37] VITALS: RESP 18
[2018-06-29] MEDS: Oseltamivir Phosphate 30 MG Capsule PO SCH (09:08)
[2018-06-29] MEDS: Gabapentin 100 MG Capsule PO SCH (09:08)
[2018-06-29] MEDS: Verapamil SR 240 MG Tablet PO SCH (09:08)
--- NOTE | 2018-06-29 11:58 | P.DCO ---
Diagnosis (1) Severe sepsis: Status: Acute (2) RAFAELA (acute kidney injury): Status: Acute Physical Therapy Order: Evaluate and treat, Improve ambulation and Strength and gait training Home Health Nursing Order: Medical education, Signs/symptoms of disease process, Medication education-adverse effect and Nursing assessment with vital signs Case Management Consult Case Management Consult-Home Health: Yes I have seen patient Terrence Gonzales on 06/29/18. My clinical findings support the need for the requested home health care services because: Limited ability to care for self and Infection with risk of complications I certify that my clinical findings support that this patient is homebound because: Unsteady gait/balance
--- NOTE | 2018-06-29 11:59 | P.DS ---
DS: Providers Date of admission: 06/26/18 17:50 Primary care physician: Tyrone Palafox MD Consults: 06/27/18 08:34 HUB Only Consult Order Routine Consulting Provider: Issa Parsons Anticipated date of discharge: 06/29/18 Brief History from admission: 82-year-old white male with a history of hypertension, diabetes mellitus type 2, chronic kidney disease stage IV presents to the emergency room after he felt extremely weak this morning and fell while he was attempting to get out of bed. Of note, patient reports a 6- day history of dry cough with no associated shortness of breath or chest pain. He reports some mild muscle aches and weakness in the hip over the past few days. He has had also a poor appetite due to not feeling well. He denies any associated abdominal pain nor any nausea vomiting or chills or diarrhea. He reports no fever but may be some occasional chills. He usually ambulates independently with no difficulty. 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 He does not recall his creatinine level. He reports he is making good urine with no difficulty and denies any symptoms of dysuria. Patient update on day of discharge: The patient was feeling well and wanted to go home. He had no acute complaints. Discussed with family at the bedside. Discussed with nursing. DS: Diagnosis Discharge Diagnosis (1) Severe sepsis: Status: Acute (2) RAFAELA (acute kidney injury): Status: Acute DS: Summary Influenza Positive for Flu. Had rhabdo and elevated lactic acid level on admission. Afebrile and without leukocytosis. CXR WNL. The pt will continue renally dosed Tamiflu and will follow up with his PCP. He worked with PT and HHC was recommended. Case management was consulted. Type 2 diabetes The pt had an episode of hypoglycemia while in the hospital. His glucose was monitored closely and stabilized. He will resume his home regimen upon discharge and will follow up with his PCP. Acute on chronic renal disease Improved with IVFs. Hypertension We continued verapamil and will increase to 360 mg daily at the time of discharge. Hyperlipidemia We discontinued statin due to rhabdomyolysis and muscle weakness. Time Spent with Patient Total time spent providing and/or coordinating discharge services: Greater than 30 minutes Quality: VTE Deep Vein Thrombosis/Pulmonary Embolism Present on Admission: No Exam Narrative Exam Narrative: GENERAL: Well-nourished well-developed pleasant male in no acute distress. SKIN: Warm and dry. HEAD: Atraumatic. Normocephalic. EYES: Pupils equal and round. No scleral icterus. No injection or drainage. ENT: No nasal bleeding or discharge. Mucous membranes pink and moist. Oropharynx no erythema or exudates. NECK: Trachea midline. No JVD. CARDIOVASCULAR: Regular rate and rhythm. RESPIRATORY: No accessory muscle use. Relatively clear to auscultation. Breath sounds equal bilaterally. GASTROINTESTINAL: Abdomen soft, non-tender, nondistended. Normoactive bowel sounds. MUSCULOSKELETAL: Extremities without clubbing, cyanosis, or edema. No obvious deformities. NEUROLOGICAL: Awake and alert to person place time situation. No obvious cranial nerve deficits. Motor grossly within normal limits. Five out of 5 muscle strength in the arms and legs. Normal speech. PSYCHIATRIC: Appropriate mood and affect; insight and judgment normal. Results Labs on day of discharge: Labs from last 24 hours 06/29/18 06/29/18 06/29/18 08:13 03:50 03:50 WBC 3.6 L RBC 3.57 L Hgb 11.5 L Hct 32.8 L MCV 92.1 MCH 32.4 MCHC 35.1 RDW 13.4 Plt Count 85 L MPV 8.9 Prelim Diff (Auto) Slide review pending Neut % (Auto) 68.1 Lymph % (Auto) 21.4 Osborne % (Auto) 8.3 H Eos % (Auto) 1.9 Baso % (Auto) 0.3 Neut # (Auto) 2.4 Lymph # (Auto) 0.8 L Osborne # (Auto) 0.3 Eos # (Auto) 0.1 Baso # (Auto) 0.0 WBC Differential . Diff Scan Auto diff confirmed Differential Comment . Platelet Estimate Low L Platelet Morphology Enlarged H Sodium 139 Potassium 4.5 Chloride 110 H Carbon Dioxide 22.5 Anion Gap 7 BUN 25 H Creatinine 1.97 H Estimated GFR 33 L POC Glucose 167 H Random Glucose 185 H Calcium 8.2 L Magnesium 2.0 06/28/18 06/28/18 06/28/18 22:02 18:50 17:33 WBC RBC Hgb Hct MCV MCH MCHC RDW Plt Count MPV Prelim Diff (Auto) Neut % (Auto) Lymph % (Auto) Osborne % (Auto) Eos % (Auto) Baso % (Auto) Neut # (Auto) Lymph # (Auto) Osborne # (Auto) Eos # (Auto) Baso # (Auto) WBC Differential Diff Scan Differential Comment Platelet Estimate Platelet Morphology Sodium 141 Potassium 4.3 D Chloride 110 H Carbon Dioxide 25.0 Anion Gap 6 BUN 28 H Creatinine 2.04 H Estimated GFR 31 L POC Glucose 274 H 317 H Random Glucose 238 H Calcium 8.1 L Magnesium 06/28/18 12:31 WBC RBC Hgb Hct MCV MCH MCHC RDW Plt Count MPV Prelim Diff (Auto) Neut % (Auto) Lymph % (Auto) Osborne % (Auto) Eos % (Auto) Baso % (Auto) Neut # (Auto) Lymph # (Auto) Osborne # (Auto) Eos # (Auto) Baso # (Auto) WBC Differential Diff Scan Differential Comment Platelet Estimate Platelet Morphology Sodium Potassium Chloride Carbon Dioxide Anion Gap BUN Creatinine Estimated GFR POC Glucose 159 H Random Glucose Calcium Magnesium Preliminary micro results at discharge 06/26/18 13:55 Aerobic Blood Culture - Preliminary Blood - Peripheral No growth in 3 days Anaerobic Blood Culture - Preliminary No growth in 3 days 06/26/18 13:45 Aerobic Blood Culture - Preliminary Blood - Peripheral No growth in 3 days Anaerobic Blood Culture - Preliminary No growth in 3 days Impressions ITS Impressions Chest X-Ray 06/26/18 13:27 CONCLUSION: No acute cardiopulmonary disease. Head CT 06/26/18 13:27 CONCLUSION: Slight chronic small vessel ischemic and atrophic changes. Abdomen/Pelvis CT 06/26/18 15:35 CONCLUSION: 1. Cholelithiasis. No pericholecystic inflammatory changes seen. 2. Colonic diverticula. No evidence of acute diverticulitis. 3. Enlarged prostate. 4. Lumbar spine degenerative findings. Discharge Plan Discharge Disposition Patient Disposition: W/Home Health Service Discharge Condition Condition: Stable Discharge Order Discharge Orders: Discharge Order (Routine); Ordered 06/29/18 Ordered By: Tommie Urbina Discharge Details Anticipated Discharge Date: 06/29/18 Physicians Team ED Provider: Alejandrina De Jesus Primary Care Provider: Tyrone Palafox V Attending Provider: Tommie Urbina Other Providers: [employer] Rxs /Orders / Referrals /Forms Prescriptions: New oseltamivir [Tamiflu] 30 mg Capsule 30 mg PO DAILY Qty: 3 RF: 0 verapamil 360 mg capsule,ext rel. pellets 24 hr 360 mg PO DAILY Qty: 30 RF: 0 Continue atorvastatin 40 mg Tablet 40 mg PO DAILY RF: 0 glipizide 10 mg Tablet 10 mg PO BID RF: 0 aspirin [Aspir-81] 81 mg Tablet,Delayed Release (Dr/Ec) 81 mg PO DAILY RF: 0 gabapentin 100 mg Capsule 100 mg PO DAILY RF: 0 pioglitazone 30 mg Tablet 30 mg PO DAILY RF: 0 Discontinued verapamil 240 mg Capsule,Ext Rel. Pellets 24 Hr 240 mg PO DAILY RF: 0 Referrals: UNKNOWN, [Non-Staff] - See Instructions (1 week PCP follow-up) Discharge Instructions Additional Instructions: Take Tamiflu as directed Follow up with your PCP in one week Verapamil has been increased for high blood pressure Discharge Interventions Interventions: Discharge Planning - Case Management Last Done: 06/27/18 11:41 Status ED Status: Left Department
[2018-06-29 12:35] VITALS: BP 165/75; PULSE 80; TEMP 98.4; O2SAT 98
--- NOTE | 2018-06-29 23:15 | ECG ---
Date Performed: 06/28/2018 Time Performed: 05:49:54 PTAGE: 82 years EKG: Sinus rhythm MODERATE INTRAVENTRICULAR CONDUCTION DELAY NONSPECIFIC T-WAVE ABNORMALITY BORDERLINE ECG INTERPRETAT ION BASED ON A DEFAULT AGE OF 40 YEARS PREVIOUS TRACING : 06/26/2018 15.22 Compared to previous tracing, now with non-specific ST/T wave changes DOCTOR: Prabhakar May Interpretating Date/Time 06/29/2018 23:14:06
== END 2018-06-29 12:48 | disposition home health service (06) | DRG 872 ==
LOC: NEPE 12:56 → NEDA 17:50 → NEPFCDU 21:40
PROVIDERS: ADMIT Hospitalist; ATTEND Hospitalist
DX: J11.1 Influenza due to unidentified influenza virus with other respiratory manifestations; E11.649 Type 2 diabetes mellitus with hypoglycemia without coma; I12.9 Hypertensive chronic kidney disease with stage 1 through stage 4 chronic kidney disease, or unspecified chronic kidney disease; Z79.84 Long term (current) use of oral hypoglycemic drugs; A41.9 Sepsis, unspecified organism; N17.9 Acute kidney failure, unspecified; E87.6 Hypokalemia; Z79.82 Long term (current) use of aspirin; E78.5 Hyperlipidemia, unspecified; E11.22 Type 2 diabetes mellitus with diabetic chronic kidney disease; N18.4 Chronic kidney disease, stage 4 (severe); R65.20 Severe sepsis without septic shock; R26.81 Unsteadiness on feet; M62.82 Rhabdomyolysis; W18.30XA Fall on same level, unspecified, initial encounter; K80.20 Calculus of gallbladder without cholecystitis without obstruction
CPT/HCPCS: 70450; 71010; 71045; 74176; 80048; 80053; 81001; 82550; 82552; 82607; 82947; 82948; 82962; 83605; 83735; 84100; 84402; 84403; 84443; 84484; 85025; 85610; 85730; 87040; 87275; 87276; 87804; 90761; 90765; 93005; 93308; 96361; 96365; 97110; 97116; 97161; 99285; J0696; J1644; J1815; J2543; J7030